=== PATIENT | male | born 1945 | race Caucasian/White ===

== ENCOUNTER 2016-07-01 06:00 | Inpatient (IN) | payer MEDICARE ==
[2016-06-26 14:56] LABS: ASCORBIC ACID (UR NOT ORDER) 20 (NEG); BILIRUBIN, URINE NEGATIVE (NEG); KETONE, URINE NEGATIVE (NEG); LEUKOCYTE ESTERASE(NOT OR NEG (NEG); WBC (NOT ORDERED) (RFLEX) < 1 (0-5)
[2016-06-26 16:36] LABS: BASOPHILS 0.2 %; BASOPHILS ABSOLUTE 0.01 10/3/uL (0.0-0.16); EOSINOPHILS 3.1 %; EOSINOPHILS ABSOLUTE 0.15 10/3/uL (0.0-0.53); HEMOGLOBIN 14.1 g/dL (13.6-17.8); IMMATURE GRANULOCYTES 0.2 %; IMMATURE GRANULOCYTES ABSOLUTE 0.01 10/3/uL (0.0-0.11); LYMPHOCYTES 32.2 %; LYMPHOCYTES ABSOLUTE 1.56 10/3/uL (0.67-4.30); MEAN CORPUSCULAR HEMOGLOB 27.8 pg (26.0-34.0); MEAN PLATELET VOLUME 12.1 fL (9.2-13.0); MONOCYTES 8.9 %; MONOCYTES ABSOLUTE 0.43 10/3/uL (0.21-1.20); NEUTROPHILS 55.4 %; NEUTROPHILS ABSOLUTE 2.69 10/3/uL (2.02-8.40); PLATELET COUNT 168 10/3/uL (150-400); RBC DISTRIBUTION WIDTH 13.3 % (12.0-16.0); RED CELL COUNT 5.07 10/6/uL (4.7-6.1); WHITE BLOOD CELLS 4.9 10/3/uL (4.5-10.5)
[2016-06-26 16:41] LABS: HEMATOCRIT 44.1 % (40.0-51.0); MANUAL DIFF NO %
[2016-06-26 16:48] LABS: PARTIAL THROMBO TIME 26.6 SEC (22.5-37.2); PROTIME (NOT ORD) 13.1 SEC (12.0-14.5)
[2016-06-26 16:52] LABS: CHLORIDE, SERUM 109 MMOL/L (96-112); CO2 (CARBON DIOXIDE) 29 MMOL/L (24-34); CREATININE 0.94 MG/DL (0.70-1.30); GFR AFRICAN AMERICAN 95 ML/MIN (>=60); GFR NON AFRICAN AMERICAN 82 ML/MIN (>=60); POTASSIUM, SERUM 4.5 MMOL/L (3.5-5.3); SODIUM, SERUM 145 MMOL/L (135-148)
[2016-06-26 16:57] LABS: BUN (BLOOD UREA NITROGEN) 16 MG/DL (6-23); GLUCOSE, SERUM 79 MG/DL (60-99)
--- NOTE | ~2016-07-01 | HP ---
History And Physical [facility] [place]. [address] NAME: JEFFERSON MERCADO JR : 49 STATUS : ADM IN PAT#: [id number] AGE: 71 ADM/REG DATE : 07/01/16 MR#: [id number] REPORT SERV DATE: 07/01/16 DICTATED BY: TRELL BALDERAS DATE: 06/28/16 REPORT STATUS : Draft TRANSCRIBED BY: MODL DATE: 06/28/16 DATE OF ADMISSION: 07/01/2016 CHIEF COMPLAINT: Prostate cancer, clinical stage T1c, Sacul score 3+4=7, maximum PSA 6.2. HISTORY OF PRESENT ILLNESS: Mr. Mercado is a 71-year-old male recently diagnosed with adenocarcinoma of the prostate. Elevated PSA of 6.5 led to the biopsy. Biopsy revealed Sacul score 3+4=7 from the right base. 1 of 12 biopsies were positive. [address]aging CT scan of the abdomen and pelvis was negative. Different treatment options regarding management of prostate cancer were proposed to the patient. He has decided to proceed with laparoscopic robot-assisted radical prostatectomy. He will be an admitted after that procedure. The patient denies any trouble with urination. He has mild erectile dysfunction and occasional use of phosphodiesterase inhibitors. PAST MEDICAL HISTORY: Irritable bowel syndrome, lumbar disc disease, glaucoma, and urolithiasis. PAST SURGICAL HISTORY: Colonoscopy and polypectomy. MEDICATIONS: Multivitamins, lorazepam, temazepam, multiple eye drops, and doxazosin. ALLERGIES: NO KNOWN DRUG ALLERGIES. SOCIAL HISTORY: Never smoked. Never drank. FAMILY HISTORY: Negative for prostate cancer. REVIEW OF SYSTEMS: Chronic back pain and glaucoma. PHYSICAL EXAMINATION: GENERAL: Well-developed well-nourished white male, in no acute distress. He is awake, alert, oriented x3. HEENT: Sclerae anicteric. NECK: Supple. LUNGS: Clear. HEART: Regular rate and rhythm. ABDOMEN: Soft, nontender, no palpable abdominal masses. No hepatosplenomegaly. GENITOURINARY: Penis normal. Uncircumcised. Meatus normal. Testes are descended. Nontender. No testicular masses. No inguinal hernia. Prostate average size, slightly indurated right base, but no true nodules. EXTREMITIES: Lower extremities with no deformities. IMPRESSION: 1. Adenocarcinoma of the prostate, clinical stage T1c, Sacul score 3+4=7 from the right History And Physical [address] [address] NAME: JEFFERSON MERCADO JR : 49 STATUS : ADM IN PAT#: [id number] AGE: 71 ADM/REG DATE : 07/01/16 MR#: [id number] REPORT SERV DATE: 07/01/16 DICTATED BY: TRELL BALDERAS DATE: 06/28/16 REPORT STATUS : Draft TRANSCRIBED BY: MODL DATE: 06/28/16 base, maximum PSA 6.2. 2. Mild erectile dysfunction. PLAN: Laparoscopic robot-assisted radical prostatectomy. Potential complications of bleeding, infection, urinary incontinence, bladder neck obstruction, loss of ejaculate, erectile dysfunction, and injury to adjacent structures such as bladder, ureters, rectum, colon, intestine and nerves, as well as bowel obstruction complications have been explained to the patient. He both manually and verbally consents to proceed. PF/MANUEL Trell Balderas M.D. / [id number] CC: Slime Lisa M.D.
--- NOTE | ~2016-07-01 | OP ---
Record Of Operation [facility] [address] [place]. [address] NAME: JEFFERSON HOUGH JR : 49 STATUS : ADM IN PAT#: [id number] AGE: 71 ADM/REG DATE : 07/01/16 MR#: [id number] REPORT SERV DATE: 07/01/16 DICTATED BY: TRELL BALDERAS DATE: 07/01/16 REPORT STATUS : Draft TRANSCRIBED BY: MODL DATE: 07/01/16 DATE OF PROCEDURE: 07/01/2016 PREOPERATIVE DIAGNOSIS: Adenocarcinoma of the prostate, clinical stage T1c, Shereen score 3+4=7, maximum PSA 6.2. POSTOPERATIVE DIAGNOSIS: Adenocarcinoma of the prostate, clinical stage T1c, Shereen score 3+4=7, maximum PSA 6.2. PROCEDURE: Laparoscopic robot-assisted radical prostatectomy. SURGEON: Trell Balderas M.D. M48 M60 ARMOR CREWMAN: Melissa Lowry. ANESTHESIA: General and local. ESTIMATED BLOOD LOSS: 200 mL. FLUID REPLACEMENT: 3 L of crystalloid. DRAINS: 15 mm Silver drain in prevesical space and an 18-Malawian Balderas catheter per urethra. INDICATION: A 71-year-old male recently diagnosed with adenocarcinoma of the prostate. TECHNIQUE: The patient was identified, brought to the operating room, administered general anesthetic agent by the Anesthesia Service and intubated. He was positioned in dorsal lithotomy position. The abdomen has been clipped. The entire abdomen, penis, groin, scrotum, and perineum were prepped and draped in the usual sterile fashion. A 16-Malawian Balderas catheter was passed in the bladder and left for drainage. All laparoscopic port sites were first infiltrated with 0.5% Marcaine plain. A 3 cm skin incision was made above the umbilicus and carried down through subcutaneous tissue to expose the rectus fascia. Holding sutures were placed in the rectus fascia. The transverse incision was made in the rectus fascia with an 11 blade scalpel. The underlying peritoneum was identified and opened sharply. A balloon trocar was placed into the peritoneal space and a pneumoperitoneum was created by insufflating carbon dioxide. The abdominal pressure raised to 15 mmHg and held there through the entire case until otherwise specified. The patient's placed in steep Trendelenburg. Three robot arm ports and two assistant to the director ports were placed under direct laparoscopic vision. Once ports were in position, the patient in steep Trendelenburg, the da Lencho robot was brought to the table and mated to the ports. I took down some adhesions between the sigmoid colon and left pelvic sidewall. I then opened the cul-de-sac and exposed the seminal structures. The left and right Vasa deferentia are clipped proximally and transected distally. The seminal vesicles were dissected out with the blood supply was clipped laterally. Record Of Operation [facility] [address] [place]. [address] NAME: JEFFERSON HOUGH JR : 49 STATUS : ADM IN PAT#: [id number] AGE: 71 ADM/REG DATE : 07/01/16 MR#: [id number] REPORT SERV DATE: 07/01/16 DICTATED BY: TRELL BALDERAS DATE: 07/01/16 REPORT STATUS : Draft TRANSCRIBED BY: MANUEL DATE: 07/01/16 Denonvilliers fascia was opened sharply in the rectum, this swept off the undersurface of the prostate all the way out to the apex. I began to take the neurovascular bundles off the undersurface of the prostate out of the apex. I then divided the median umbilical ligaments and urachus, and opened the peritoneum just lateral to the median umbilical ligaments on each side all the way to the Vasa deferentia. The bladder was swept off the anterior abdominal wall and symphysis pubis. The fat overlying prostate gland was taken off with sharp dissection. The endopelvic fascia was pierced sharply at the prostatovesical junction and opened distally out to the puboprostatic ligaments bilaterally. Attachments to the striated sphincter were taken off the apex of the prostate sharply. The neurovascular bundles were mobilized off the apex of the prostate. The dorsal venous complex was secured with a laparoscopic CATHIE stapling device. I then carried the dissection of neurovascular bundles back to the posterior pedicles bilaterally. I switched to 30-degree down lens and developed a plane between the bladder neck of the prostate. I opened the anterior bladder neck and elevated the Balderas catheter and came through the posterior bladder neck. The ureteral orifices were identified and kept out of harm's way. I carried my dissection down, exposed the previously dissected out seminal structures. I reconstructed the right bladder neck with a horizontal mattress suture of 3-0 Monocryl. I then secured the posterior pedicles with locking clips bilaterally and then divided them. The prostate was now mobile all the way out to the apex. The last attachments to the striated sphincter were taken off the apex of the prostate. I sampled some of the neurovascular bundle from both the left and right sides. No prostatic tissue was identified. The urethra was divided sharply and the posterior striated sphincter was divided. Specimen was inspected, appeared intact, placed in specimen retrieval bag and held for later retrieval. The abdominal pressure were now lowered down to 7 mmHg and held there for the next 10 minutes. The pelvis was irrigated copiously. Fastidious hemostasis was achieved. I did a posterior reconstruction in two layers with 3-0 V-Loc. I then did a modified van Velthoven vesicourethral anastomosis with 3-0 V-Loc. When the anastomosis was completed, I inserted a new 18-Malawian Balderas catheter. 240 mL of saline was inserted into the bladder. It holds them without extravasation. The bladder was then drained. 12 mL of sterile water were inflated into the catheter balloon. I lowered the abdominal pressure now down to 3 mmHg. No bleeding was noted. I raised the pressure back up to 15 and removed the third robot arm instrument. I placed a 15 mm Silver drain through that port. I removed the port, sutured the drain to skin with 2-0 Prolene. The da Lencho robot was undocked. I transferred the string of the specimen bag out through the umbilical port. The assistant to the director 12 mm port was removed and the fascia there was closed a Nikita-Eri endoscopic closure system. Pressure was lowered once again and the ports were removed. No port site bleeding was noted. The patient has been taken out of Trendelenburg. I extended my fascial incision above the umbilicus with 1 cm in each direction. I then Record Of Operation [address] [place]. [address] NAME: JEFFERSON HOUGH : 49 STATUS : ADM IN PAT#: [id number] AGE: 71 ADM/REG DATE : 07/01/16 MR#: [id number] REPORT SERV DATE: 07/01/16 DICTATED BY: TRELL BALDERAS DATE: 07/01/16 REPORT STATUS : Draft TRANSCRIBED BY: MODL DATE: 07/01/16 delivered the specimen out through the wound. I closed the fascia with [id number] 0 Vicryl sutures. The subcutaneous tissue of all ports were irrigated copiously. The subcutaneous tissue of the larger ports were closed with 3-0 Vicryl. The skin of all ports were closed with 4-0 Monocryl. Dressings were applied. The catheter was secured. The patient was awakened, taken to the recovery unit in stable and satisfactory condition. TINO/MANUEL Trell Balderas M.D. / [id number] CC: Trell Balderas M.D.
[~2016-07-01 06:00] MED LIST: ADVIL PO; ATV1 PO; CARDU4 PO; LEXAPRO20 PO; MULTIVITAMIN; PRILO PO; REST15 PO; [UNRECOGNIZED DRUG - OTHER]
[2016-07-02 06:41] LABS: CHLORIDE, SERUM 109 MMOL/L (96-112); CO2 (CARBON DIOXIDE) 30 MMOL/L (24-34); CREATININE 0.97 MG/DL (0.70-1.30); GFR AFRICAN AMERICAN 92 ML/MIN (>=60); GFR NON AFRICAN AMERICAN 79 ML/MIN (>=60); POTASSIUM, SERUM 4.3 MMOL/L (3.5-5.3); SODIUM, SERUM 144 MMOL/L (135-148)
[2016-07-02 06:44] LABS: BUN (BLOOD UREA NITROGEN) 6 MG/DL (6-23); GLUCOSE, SERUM 121 MG/DL (60-99); HEMATOCRIT 39.8 % (40.0-51.0); HEMOGLOBIN 12.8 g/dL (13.6-17.8)
[2016-07-02] MEDS ORDERED: NORCO1 TA1 PO (07:55)
== END 2016-07-02 13:12 | disposition home or self-care (01) | DRG 708 ==
LOC: SDC/OF 06:00 → PACU 10:52 → 4SO 12:46
PROVIDERS: Urology
PROC: 0VT04ZZ Resection of Prostate, Percutaneous Endoscopic Approach (ICD-10-PCS; principal; 2016-07-01 06:30)
PROC: 0VTQ4ZZ Resection of Bilateral Vas Deferens, Percutaneous Endoscopic Approach (ICD-10-PCS; principal; 2016-07-01 06:30)
PROC: 0VT34ZZ Resection of Bilateral Seminal Vesicles, Percutaneous Endoscopic Approach (ICD-10-PCS; principal; 2016-07-01 06:30)
PROC: 8E0W4CZ Robotic Assisted Procedure of Trunk Region, Percutaneous Endoscopic Approach (ICD-10-PCS; principal; 2016-07-01 06:30)
DX: C61 Malignant neoplasm of prostate (principal); G89.29 Other chronic pain; N52.9 Male erectile dysfunction, unspecified; K58.9 Irritable bowel syndrome, unspecified; H40.9 Unspecified glaucoma; Z87.442 Personal history of urinary calculi; Z86.010 Personal history of colon polyps; M54.9 Dorsalgia, unspecified
CPT/HCPCS: 80048; 81001; 83735; 85014; 85018; 85025; 85610; 85730; 88305; 88309; 88331; A9270-GY; J0690; J2250; J2405; J2710; J3010